=== PATIENT | male | born 1985 | race Two or more races ===

== ENCOUNTER 2017-07-12 17:13 | Emergency (ER) | payer SELFPAY ==
[~2017-07-12] VITALS: Ht 167.6 cm; Wt 74.8 kg
[2017-07-12 19:55] VITALS: BP 139/90
[2017-07-12] MEDS ORDERED: HYDROcodone-ACET 10/325MG TAB PO ONE (20:45)
== END 2017-07-12 21:19 | disposition home or self-care (01) ==
LOC: ER 17:17
DX: S93.401A Sprain of unspecified ligament of right ankle, initial encounter (principal); S20.211A Contusion of right front wall of thorax, initial encounter; M25.531 Pain in right wrist; M62.838 Other muscle spasm; W11.XXXA Fall on and from ladder, initial encounter; Y93.89 Activity, other specified; Y99.8 Other external cause status; Y92.89 Other specified places as the place of occurrence of the external cause
CPT/HCPCS: 71101; 73110; 73502; 73600